=== PATIENT | male | born 1990 | race African-American/Black ===

== ENCOUNTER 2018-02-26 10:05 | Emergency (ER) | payer OTHER ==
[2018-02-26 10:20] VITALS: BP 106/62; PULSE 64; TEMP 97.8; BMI 30.9
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
== END 2018-02-26 12:56 | disposition home or self-care (01) ==
LOC: FER 10:05
DX: Z04.1 Encounter for examination and observation following transport accident (principal); V77.1XXA Passenger on bus injured in collision with fixed or stationary object in nontraffic accident, initial encounter; Y93.89 Activity, other specified; Y92.410 Unspecified street and highway as the place of occurrence of the external cause; F31.9 Bipolar disorder, unspecified; E11.9 Type 2 diabetes mellitus without complications
CPT/HCPCS: 99281-25

== ENCOUNTER 2020-04-04 02:18 | Emergency (ER) | payer OTHER ==
[2020-04-04 02:32] VITALS: TEMP 98.5; BMI 36.2
--- NOTE | 2020-04-04 03:32 | PDOC ---
History of Present Illness - General Chief Complaint: Substance Abuse Stated Complaint: SUBSTANCE ABUSE Time Seen by Provider: 04/04/20 03:14 History Source: Patient, Care Provider (Member of staff from [facility] at bedside), Other (Longterm Paperwork) Exam Limitations: Other (MR) - History of Present Illness Initial Comments: 29 y/o male presenting to [facility] ER from [facility] for evaluation after briefly eloping. Transfer paperwork reports the pt left the house at 12:55 and returned at 1:30; requests pt "be checked or evaluated." Pt denies any active complaints. States he "wanted to go for a walk." Denies drinking, smoking, or any trauma. Denies chest pain, SOB, pain or difficulty moving his arms or legs. Member of staff at bedside states he left the home and returned. The nurse was contacted via telephone and requested he be "checked out." Attempted to reach the pt's primary care physician, Dr. Merle Zapata, at [phone]. No answer. Unable to reach anyone at that number. Past History - Medical History Allergies/Adverse Reactions: Allergies Allergy/AdvReac Type Severity Reaction Status Date / Time bismuth subsalicylate Allergy Verified 04/04/20 02:26 [From Pepto-Bismol] ibuprofen Allergy Verified 04/04/20 02:26 Home Medications: Ambulatory Orders Benztropine Mesylate [Cogentin -] 0.5 mg PO BID 08/04/16 Chlorpromazine [Thorazine -] 100 mg PO BID 08/04/16 Cholecalciferol (Vitamin D3) [Vitamin D3 -] 1,000 unit PO DAILY 08/04/16 Fluphenazine HCl [Prolixin -] 10 mg PO BID 08/04/16 Levothyroxine [Synthroid -] 150 mcg PO DAILY 08/04/16 Lisinopril [Zestril] 2.5 mg PO DAILY 08/04/16 COPD: No DVT: No Dementia: No Diabetes: Yes (Pre-Diabetic) Psychiatric Problems: Yes (Schizophrenia, MILD MR, Mood Disorder, Psychotic Disorder) Comment:: Medical Hx: - Mild Mental Retardation - Psychotic Disorder (NOS) - Mood Disorder, unspecified - Schizophrenia - Pre-Diabetic - Immunization History Td Vaccination: Yes TDAP Vaccination: Yes Immunization Up to Date: Yes - Psycho-Social/Smoking History Smoking History: Unknown if ever smoked Have you smoked in the past 12 months: No Number of Cigarettes Smoked Daily: 8 Information on smoking cessation initiated: No - Substance Abuse Hx (Audit-C & DAST Scrn) How often the patient has a drink containing alcohol: Never Score: In Men: 4 or > Positive; In Women: 3 or > Positive: 0 Screen Result (Pos requires Nsg. Audit-10AR): Negative In the last yr the pt used illegal drug/Rx for NonMed reason: No Score: Yes response is considered Positive: 0 Screen Result (Positive result requires Nsg. DAST-10): Negative Review of Systems - Review of Systems Able to Perform ROS?: Yes Comments:: 10 point review of systems completed. All systems negative except as noted above. *Physical Exam - Vital Signs Last Vital Signs Temp Pulse Resp BP Pulse Ox 98.5 F 91 H 20 119/83 99 04/04/20 02:35 04/04/20 02:35 04/04/20 02:35 04/04/20 02:35 04/04/20 02:35 - Physical Exam Vital signs and nursing notes reviewed. Constitutional- Well-developed, well-nourished, obese adult male in no acute distress or obvious discomfort. Found sleeping on hospital stretcher. Easily arousable to voice. Head- Normocephalic. No obvious external signs of trauma. Eyes- Sclerae white. Neck- Supple, trachea is midline. Cardiovascular / Chest- Regular rate and regular rhythm. No murmur, rubs, clicks, or gallops. Peripheral pulses- radial pulses full. No pretibial edema. Respiratory- Breathing unlabored. Speaking in multi-word responses without pausing. Equal chest rise and fall. Clear to auscultation bilaterally. No stridor, no wheezing, no rhonchi. Gastrointestinal- abdomen is soft, non-tender, non-distended. No overlying skin lesions or obvious signs of trauma. Neuro- Alert and oriented. Moving all four extremities spontaneously. MSK- No obvious long bone deformity. No midline cervical, thoracic, or lumbar spinal tenderness. Skin- Warm, dry, and intact. No bruising, rashes, or other lesions. Psych- Affect- appropriate. Mood- normal. Speech was non-labored, non- pressured. Medical Decision Making - Medical Decision Making 29 y/o male presenting for medical screening after eloping from [facility] for approx. 45 minutes. Afebrile. Triage vitals unremarkable for hypotension or ta chycardia. Normoxic on room air. Physical exam as described above. No obvious signs of intoxication or trauma. No obvious signs of emergent condition. Unable to reach facility nurse or physician with number provided. MSE performed. Pt to be discharged back to [facility] with member of staff present at bedside. Case discussed with ED Attending Dr. Sudha Null M.D., PGY3 Emergency Medicine Resident Discharge - Discharge Information Problems reviewed: Yes Clinical Impression/Diagnosis: Encounter for medical screening examination Condition: Good Disposition: HOME - Admission No - Follow up/Referral - Patient Discharge Instructions Additional Instructions: Mr. Kirk was seen for a medical screening exam after eloping from [facility]. He denies any complaints. His vital signs are normal. His physical exam is unremarkable for obvious acute injuries or signs of an acute emergent condition. Unable to reach Dr. Merle Zapata at [phone]. Return to the emergency department for any new or concerning symptoms. Print Language: VINCENTIAN - Post Discharge Activity
[2020-04-04 04:10] VITALS: BP 124/90; PULSE 74
== END 2020-04-04 04:10 | disposition home or self-care (01) ==
LOC: JER 02:18
DX: Z02.2 Encounter for examination for admission to residential institution (principal)
CPT/HCPCS: 99281-25

== ENCOUNTER 2020-04-10 14:33 | Emergency (ER) | payer OTHER ==
[2020-04-10 14:44] VITALS: BP 117/74; PULSE 102; TEMP 98.5; BMI 25.8
[2020-04-10] MEDS ORDERED: ACETAMINOPHEN 325 MG TABLET (FP) PO ONE (15:08)
[2020-04-10] MEDS ORDERED: ACETAMINOPHEN 325 MG TABLET (FP) ONE (15:11)
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
== END 2020-04-10 16:42 | disposition home or self-care (01) ==
LOC: JERFT 14:33
DX: S61.226A Laceration with foreign body of right little finger without damage to nail, initial encounter (principal)
CPT/HCPCS: 99283-25

== ENCOUNTER 2021-12-15 01:44 | Emergency (ER) | payer OTHER ==
[2021-12-15 02:17] VITALS: BP 136/94; PULSE 90; TEMP 97.7; BMI 30.4
[2021-12-15] MEDS ORDERED: DIPHTH,PERTUSS(ACELL),TET 0.5 ML DISP.SYRIN IM ONE ×2 (02:30→02:47)
[2021-12-15] MEDS ORDERED: AMOX TR/POT CLAV 875MG/125MG TABLETS (FP) PO ONE (02:30)
[2021-12-15] MEDS ORDERED: AMOX TR/POT CLAV 875MG/125MG TABLETS (FP) ONE (02:46)
== END 2021-12-15 04:03 | disposition home or self-care (01) ==
LOC: JER 01:44
PROC: 3E0234Z Introduction of Serum, Toxoid and Vaccine into Muscle, Percutaneous Approach (ICD-10-PCS; principal; 2021-12-15)
DX: S00.81XA Abrasion of other part of head, initial encounter (principal); Y04.8XXA Assault by other bodily force, initial encounter
CPT/HCPCS: 90471; 90715; 99284-25

== ENCOUNTER 2023-03-02 19:42 | Emergency (ER) | payer OTHER ==
[2023-03-02 20:18] VITALS: BP 112/73; PULSE 84; RESP 18; TEMP 98.6; BMI 35.1
[2023-03-02 20:47] LABS: BASO % 0.3 % (0-2.0); EOS % 4.4 % (0-4.5); HEMATOCRIT 39.3 % (35.4-49); HEMOGLOBIN 13.4 GM/dL (11.7-16.9); MCH 30.4 pg (25.7-33.7); MCHC 34.1 g/dl (32.0-35.9); MEAN CELL VOLUME 89.3 fl (80-96); MONO % 14.5 % (3.8-10.2); NEUT % 52.8 % (42.8-82.8); PLATELET COUNT 166 10^3/uL (134-434); RDW 13.2 % (11.9-15.9); WHITE BLOOD COUNT 5.8 K/mm3 (4.0-10.0)
[2023-03-02 21:10] LABS: CALCIUM 9.3 mg/dL (8.5-10.1)
[2023-03-02 21:12] LABS: ALBUMIN 3.7 g/dl (3.4-5.0); BLOOD UREA NITROGEN 15.3 mg/dL (7-18); MAGNESIUM 2.1 mg/dL (1.8-2.4)
[2023-03-02 21:14] LABS: CREATININE 1.5 mg/dL (0.55-1.3)
[2023-03-02 21:16] LABS: BILIRUBIN,TOTAL 0.5 mg/dL (0.2-1); TOT PROT 7.4 g/dl (6.4-8.2)
[2023-03-02] MEDS ORDERED: SODIUM CHLORIDE 0.9% 500 ML INFUS.BAG IV ONE (22:09)
[2023-03-03 00:01] LABS: URINE APPEARANCE CLEAR; URINE BILIRUBIN NEGATIVE (NEGATIVE); URINE COLOR YELLOW; URINE GLUCOSE (UA) NEGATIVE (NEGATIVE); URINE KETONE NEGATIVE (NEGATIVE); URINE LEUK ESTERASE NEGATIVE (NEGATIVE); URINE NITRITE NEGATIVE (NEGATIVE); URINE PROTEIN NEGATIVE (NEGATIVE)
== END 2023-03-03 00:26 | disposition home or self-care (01) ==
LOC: JER 19:42
DX: R47.81 Slurred speech (principal)
CPT/HCPCS: 36415; 70450-TC; 71045-TC-FY; 80053; 81003; 82962; 83735; 84484; 85025; 87086; 93005; 93010; 99285-25

== ENCOUNTER 2023-06-03 19:29 | Emergency (ER) | payer OTHER ==
[2023-06-03] MEDS ORDERED: ERYTHROMYCIN 0.5% OPHTHALMIC OINTMENT 3.5 GM TUBE OU ONE (19:34)
[2023-06-03 19:40] VITALS: BP 131/83; PULSE 88; RESP 18; TEMP 98.5; BMI 30.4
[2023-06-03] MEDS ORDERED: ERYTHROMYCIN 0.5% OPHTHALMIC OINTMENT 3.5 GM TUBE ONE (19:41)
== END 2023-06-03 19:49 | disposition home or self-care (01) ==
LOC: FER 19:29
DX: H10.33 Unspecified acute conjunctivitis, bilateral (principal); H53.8 Other visual disturbances
CPT/HCPCS: 99283-25

== ENCOUNTER 2024-08-07 00:24 | Emergency (ER) | payer OTHER ==
[2024-08-07 00:39] VITALS: BP 143/88; PULSE 95; RESP 16; TEMP 97.3; BMI 38.5
[2024-08-07] MEDS ORDERED: AMOX TR/POT CLAV 875MG/125MG TABLETS (FP) ONE (00:40)
[2024-08-07] MEDS ORDERED: DIPHTH,PERTUSS(ACELL),TET 0.5 ML DISP.SYRIN IM ONE (00:40)
[2024-08-07] MEDS: AMOX TR/POT CLAV 875MG/125MG TABLETS (FP) PO ONE (00:45)
[2024-08-07] MEDS: DIPHTH,PERTUSS(ACELL),TET 0.5 ML DISP.SYRIN IM ONE (00:45)
== END 2024-08-07 01:19 | disposition home or self-care (01) ==
LOC: FER 00:24
DX: S50.12XA Contusion of left forearm, initial encounter (principal); W50.3XXA Accidental bite by another person, initial encounter
CPT/HCPCS: 90715; 99284-25